=== PATIENT | female | born 1945 | race Caucasian/White ===

== ENCOUNTER → 2020-06-24 | Outpatient (CLI) | payer MEDICARE ==
[~2020-06-24] MED LIST: ALL DAY ALLERGY10 MG PO; CRESTOR10 MG PO; DOK100 M1 PO; ECOTRIN81 MG PO; FEOSOL325 MG PO; GLUCOTROL XL 22.5 MG PO; HYZAAR 100-251 EACH PO; LOPRESSOR50 MG PO; LUTEIN 15 MG S1 EACH PO; NORVASC 5 MG TAB5 MG PO; TRESIBA100 UNIT/1 SQ; TRULICITY1.5 MG/0.5 SQ; ULTRAM50 MG PO; WOMEN'S 50 PLU1 EACH PO
[2020-06-24 09:11] LABS: HEMOGLOBIN 13.3 gm/dl (12.3-15.3); RED BLOOD COUNT 4.37 M/UL (4.00-5.10); WHITE BLOOD COUNT 9.2 K/UL (4.5-11.0)
[2020-06-24 09:29] LABS: BUN/CREATININE RATIO 18 (0-10)
[2020-06-25 09:14] LABS: CREATININE, URINE 79.3 mg/dL (Not Estab.)
== END ==
LOC: LAB 08:32
PROVIDERS: Internal Medicine
DX: E11.65 Type 2 diabetes mellitus with hyperglycemia (principal); J30.9 Allergic rhinitis, unspecified; E55.9 Vitamin D deficiency, unspecified
CPT/HCPCS: 36415; 80053; 82043; 82570; 83036; 85025

== ENCOUNTER → 2020-11-21 | Outpatient (CLI) | payer MEDICARE, OTHER ==
[2020-11-21 09:41] LABS: HEMOGLOBIN 13.2 gm/dl (12.3-15.3); RED BLOOD COUNT 4.31 M/UL (4.00-5.10); WHITE BLOOD COUNT 9.4 K/UL (4.5-11.0)
[2020-11-22 09:14] LABS: CREATININE, URINE 147.9 mg/dL (Not Estab.)
== END ==
LOC: LAB 08:27
PROVIDERS: Internal Medicine
DX: I10 Essential (primary) hypertension (principal); E11.65 Type 2 diabetes mellitus with hyperglycemia; E78.5 Hyperlipidemia, unspecified; E55.9 Vitamin D deficiency, unspecified; R20.8 Other disturbances of skin sensation; J30.9 Allergic rhinitis, unspecified; R53.83 Other fatigue
CPT/HCPCS: 36415; 80053; 80061; 82043; 82570; 82607; 83036; 84443; 85025

== ENCOUNTER → 2020-11-28 | Outpatient (CLI) | payer MEDICARE, SELFPAY | LOC: MRI 08:58 → EXRD 10:45 | DX: M50.30 Other cervical disc degeneration, unspecified cervical region (principal); R10.11 Right upper quadrant pain; K83.8 Other specified diseases of biliary tract | CPT/HCPCS: 72141; 76705 ==

== ENCOUNTER → 2020-12-23 | Outpatient (CLI) | payer MEDICARE, SELFPAY | LOC: HEART 5 07:30 | DX: R06.02 Shortness of breath (principal); I07.1 Rheumatic tricuspid insufficiency; I27.20 Pulmonary hypertension, unspecified | CPT/HCPCS: 78452; 93306; A9502; J2785 ==

== ENCOUNTER → 2021-01-01 | Outpatient (CLI) | payer MEDICARE, OTHER | LOC: LAB 10:00 | PROVIDERS: Internal Medicine | DX: E11.65 Type 2 diabetes mellitus with hyperglycemia (principal) | CPT/HCPCS: 80048; 82330 ==

== ENCOUNTER → 2021-05-15 | Outpatient (CLI) | payer MEDICARE | LOC: LAB 09:28 | PROVIDERS: Internal Medicine | DX: E11.65 Type 2 diabetes mellitus with hyperglycemia (principal); E78.5 Hyperlipidemia, unspecified | CPT/HCPCS: 36415; 80053; 80061; 83036 ==

== ENCOUNTER → 2021-07-07 | Outpatient (CLI) | payer MEDICARE ==
[2021-07-07 13:12] LABS: HEMOGLOBIN 13.8 gm/dl (12.3-15.3); RED BLOOD COUNT 4.67 M/UL (4.00-5.10); WHITE BLOOD COUNT 11.4 K/UL (4.5-11.0)
== END ==
LOC: LAB 12:10
PROVIDERS: Physician Assistant
DX: R10.9 Unspecified abdominal pain (principal); M51.37 Other intervertebral disc degeneration, lumbosacral region
CPT/HCPCS: 36415; 80053; 85025

== ENCOUNTER → 2021-07-09 | Outpatient (CLI) | payer MEDICARE | LOC: LAB 15:10 | DX: R10.9 Unspecified abdominal pain (principal) | CPT/HCPCS: 36415; 82150; 83690; 85652; 86140 ==

== ENCOUNTER → 2021-07-23 | Outpatient (CLI) | payer MEDICARE, MEDICAID | LOC: KOH-I 09:14 | DX: M51.36 Other intervertebral disc degeneration, lumbar region (principal); M51.37 Other intervertebral disc degeneration, lumbosacral region | CPT/HCPCS: 72148 ==

== ENCOUNTER → 2021-11-11 | Outpatient (CLI) | payer MEDICARE, OTHER ==
[2021-11-11 09:31] LABS: HEMOGLOBIN 13.6 gm/dl (12.3-15.3); RED BLOOD COUNT 4.46 M/UL (4.00-5.10); WHITE BLOOD COUNT 8.8 K/UL (4.5-11.0)
[2021-11-12 12:14] LABS: CREATININE, URINE 57.2 mg/dL (Not Estab.)
== END ==
LOC: LAB 08:44
PROVIDERS: Internal Medicine
DX: E11.9 Type 2 diabetes mellitus without complications (principal); R53.83 Other fatigue; E78.5 Hyperlipidemia, unspecified; I10 Essential (primary) hypertension; M19.90 Unspecified osteoarthritis, unspecified site; D51.8 Other vitamin B12 deficiency anemias; E55.9 Vitamin D deficiency, unspecified
CPT/HCPCS: 36415; 80053; 80061; 82043; 82570; 82607; 82746; 83036; 84439; 84443; 85025

== ENCOUNTER → 2021-12-07 | Outpatient (CLI) | payer MEDICARE, OTHER | LOC: MRI 12:00 | DX: N18.2 Chronic kidney disease, stage 2 (mild) (principal); M54.2 Cervicalgia; R51.9 Headache, unspecified; G31.9 Degenerative disease of nervous system, unspecified | CPT/HCPCS: 36415; 70553; 72141; 82565; 84520; A9577 ==

== ENCOUNTER → 2022-01-26 | Outpatient (CLI) | payer MEDICARE | LOC: RAD 11:02 | DX: M54.2 Cervicalgia (principal); M47.812 Spondylosis without myelopathy or radiculopathy, cervical region | CPT/HCPCS: 72050 ==

== ENCOUNTER → 2022-02-18 | Outpatient (CLI) | payer MEDICARE, OTHER ==
[2022-02-23 15:11] LABS: HEMOGLOBIN A1C 10.3 % (4.8-5.6)
== END ==
LOC: LAB 10:40
PROVIDERS: Internal Medicine
DX: M25.511 Pain in right shoulder (principal); E11.65 Type 2 diabetes mellitus with hyperglycemia; M19.011 Primary osteoarthritis, right shoulder
CPT/HCPCS: 36415; 73030; 80053; 83036